=== PATIENT | male | born 1955 | race Caucasian/White ===

== ENCOUNTER 2016-12-17 18:23 | Inpatient (IN) ==
--- NOTE | 2016-12-17 18:41 | Emergency Department Note ---
Disposition Clinical Impression: Right sided weakness Disposition: Admitted As Inpatient Condition: Fair Referrals: NO,PCP [Non-Partnered Physician] - Forms: ED Satisfaction Letter Time of Disposition: 23:00 Weakness HPI - General Chief complaint: ED Chest Pain Stated complaint: CP, RIGHT SIDED WEAKNESS?? Time Seen by Provider: 12/17/16 18:27 Source: patient, EMS Mode of arrival: EMS Limitations: no limitations Nursing Notes Reviewed: Yes Vital Signs Reviewed: Yes - History of Present Illness HPI Narrative: Mr. Velasquez is a 60 year old male with history of trigeminal neuralgia post traumatic injury, PTSD, tobacco use, and alcoholic who presents via EMS for transfer from [facility] with complaint of right sided weakness since 13:00pm this afternoon and continuous double vision since 15:30pm. Patient was stumbling about two days ago when getting his mail and reported double vision at that time that resolved within about 15 minutes. Patient this evening also reports substernal dull achy chest pain off and on for about 1 week. Reports mild headache and nausea. Reports no alcohol or drugs. Has not had these similar symptoms in the past. Patient denies fevers, chills, sweats, trauma, vomiting, shortness of breath, abdominal pain, changes in urination. 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 Patient reports grandmother had an ME and mother had a stroke. Daughter reports that the patient's right side of his face was a little more droopy than normal with slurred speech and at the [facility] when they evaluated him they noted left lower extremity weakness. Pt Subjective Complaint: other (Right sided weakness) Onset (ago): hour(s) Duration: constant Pain Scale: 5 - Related Data Home Medications Medication Instructions Recorded Confirmed Alprazolam [Xanax 1 MG Tablet] 1 mg PO TID PRN 12/17/16 12/17/16 Baclofen [Lioresal] 5 mg PO BID 12/17/16 12/17/16 BuPROPion XL (24 HR) [Wellbutrin 450 mg PO DAILY 12/17/16 12/17/16 XL] CarBAMazepine [Tegretol] 200 mg PO TID 12/17/16 12/17/16 Gabapentin [Neurontin] 1,200 mg PO HS 12/17/16 12/17/16 Gabapentin [Neurontin] 600 mg PO BID 12/17/16 12/17/16 HydrOXYzine Pamoate [Vistaril] 50 mg PO BID PRN 12/17/16 12/17/16 Indomethacin [Indocin] 25 mg PO DAILY PRN 12/17/16 12/17/16 Nicotine Patch [Nicoderm] 21 mg TD DAILY 12/17/16 12/17/16 Potassium Gluconate [Potassium] 600 mg PO DAILY PRN 12/17/16 12/17/16 Prazosin HCl [Minipress] 2 mg PO HS 12/17/16 12/17/16 Quetiapine Fumarate [Seroquel] 200 mg PO HS 12/17/16 12/17/16 Allergies Allergy/AdvReac Type Severity Reaction Status Date / Time venom-honey bee Allergy Anaphylaxis Verified 01/30/16 09:14 [bee venom (honey bee)] duloxetine [From Cymbalta] AdvReac See Verified 12/17/16 19:42 Comments Constitutional: Reports: as per HPI, weakness. Denies: fever, chills, weight change Eyes: Reports: as per HPI, other (double vision) ENT ED: Reports: as per HPI Cardiovascular: Reports: as per HPI, chest pain. Denies: palpitations, edema, syncope Respiratory: Reports: as per HPI. Denies: cough, dyspnea, wheezes Gastrointestinal: Reports: as per HPI, nausea, constipation. Denies: abdominal pain, vomiting, diarrhea Genitourinary: Reports: as per HPI. Denies: dysuria Musculoskeletal: Reports: as per HPI, back pain. Denies: neck pain Integumentary: Reports: as per HPI Neurological: Reports: as per HPI, headache, weakness, numbness Psychiatric: Reports: as per HPI Endocrine: Reports: as per HPI Hematological/Lymphatic: Reports: as per HPI. Denies: easy bleeding, easy bruising Allergic/Immunologic: Reports: as per HPI Past Medical History - Past Medical History Medical history: Reports: hypertension Psychiatric history: Reports: anxiety, depression - Social History Smoking Status: Current every day smoker Smokeless Tobacco Status: No Alcohol use: Reports: heavy Last drink: days (ago) Drug use: Reports: none Mother Hx Family Neurologic Problems: Yes (stroke) Grandmother Hx Family Cardiac Disorders: Yes (Heart attack) Physical Exam - General Limitations: no limitations General appearance: alert, in no apparent distress - Head Head exam: atraumatic, normocephalic, normal inspection - Eye Eye exam: Present: normal appearance, PERRL, EOMI - ENT ENT exam: normal exam, normal oropharynx, mucous membranes moist - Neck Neck exam: Present: normal inspection, full ROM, trachea midline - Chest Chest inspection: Present: normal inspection, symmetric chest wall rise, other ( no reproducibilty of chest pain on palpation.) - Respiratory Respiratory exam: Present: normal lung sounds bilaterally - Cardiovascular Cardiovascular exam: Present: regular rate, normal rhythm, +S1, +S2 - Abdominal Exam Abdominal exam: Present: soft, Non-Tender, normal bowel sounds - Extremities Exam Extremities exam: Present: normal inspection, full ROM, other (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 Time: 19:03 Reevaluation #2: Patient evaluated by [facility]. Recommend CTA/MRI to rule out basilar infarct. Not a TPA candidate. No additional anticoagulant recommendations. Time: 19:15 - Consultations Consultation #1: Spoke with Dr. Chandler regarding admission for right sided weakness and chest pain. Admit Time: 22:54 Consultation #2: Spoke with Dr. Mora regarding patient to rule out basialr ischemic stroke. Admitted to hospitalist. Time: 22:59 Vital Signs Temperature 97.8 F 12/17/16 18:25 Pulse Rate 85 12/17/16 18:25 Respiratory Rate 18 12/17/16 18:25 Blood Pressure 198/114 12/17/16 18:25 O2 Sat by Pulse Oximetry 98 12/17/16 18:25 Temperature 97.8 F 12/17/16 18:25 Pulse Rate 84 12/17/16 21:50 Respiratory Rate 14 12/17/16 21:50 Blood Pressure 181/98 12/17/16 21:50 O2 Sat by Pulse Oximetry 96 12/17/16 21:50 Weakness - Lab Data Result diagrams: 12/17/16 18:50 12/17/16 18:50 Lab Results 12/17/16 12/17/16 12/17/16 Range/Units 18:50 18:50 18:50 WBC 6.2 (4.3-11.1) K/mcL RBC 4.68 (4.19-5.50) M/mcL Hgb 14.4 (12.9-16.9) g/dL Hct 41.9 (37.5-50.1) % MCV 89.5 (83.0-100.0) fL MCH 30.8 (28.0-33.3) pg MCHC 34.4 (31.6-35.5) g/dL RDW 12.3 (11.5-14.5) % Plt Count 241 (140-400) K/mcL MPV 7.8 L (9.4-12.4) fL Immature Gran % 0.3 (0-4) % Seg Neutrophils % 47.1 % Lymphocytes % 40.6 % Monocytes % 11.1 % Eosinophils % 0.6 % Basophils % 0.3 % Neutrophils # 2.9 (1.6-8.9) K/mcL Lymphocytes # 2.5 (0.6-4.6) K/mcL Monocytes # 0.7 (0.0-1.3) K/mcL Eosinophils # 0.0 (0.0-0.6) K/mcL Basophils # 0.0 (0.0-0.2) K/mcL PT 10.4 (9.4-12.1) Seconds INR 1.0 APTT 30.6 (26.0-36.0) Seconds Sodium 132 L (136-145) mEq/L Potassium 4.1 (3.5-4.5) mEq/L Chloride 100 (98-109) mEq/L Carbon Dioxide 22 (19-29) mEq/L BUN 14 (8-26) mg/dL Creatinine 1.12 (0.72-1.25) mg/dL Est GFR ( Amer) > 60 (> 60) Est GFR (Non-Af Amer) > 60 (> 60) BUN/Creatinine Ratio 13 (6-26) Glucose 93 (70-99) mg/dL Calculated Osmolality 274 L (280-300) Lactic Acid (0.5-2.2) mmol/L Calcium 8.3 L (8.6-10.8) mg/dL Total Bilirubin 0.3 (0.2-1.2) mg/dL AST 22 (5-34) Units/L ALT 16 (0-55) Units/L Alkaline Phosphatase 64 (38-126) Units/L Troponin I (0-0.03) ng/mL Serum Total Protein 5.9 L (6.0-8.3) g/dL Albumin 3.6 (3.5-5.0) g/dL Globulin 2.3 L (2.4-3.5) g/dL Albumin/Globulin Ratio 1.6 (1.1-2.2) Urine Color (Yellow) Urine Clarity (Clear) Urine pH (5.0-8.0) pH Units Ur Specific [place] (1.010-1.025) Urine Protein (Neg-Trace) mg/dL Urine Glucose (UA) (Normal) mg/dL Urine Ketones (Negative) mg/dL Urine Blood (Negative) Urine Nitrite (Negative) Urine Bilirubin (Negative) Urine Urobilinogen (Normal) mg/dL Ur Leukocyte Esterase (Negative) Ur Culture Indicated? (NO) Urine Opiates Screen (Rndxjs=778) ng/mL Ur Barbiturates Screen (Pjilom=472) ng/mL Ur Phencyclidine Scrn (Cutoff=25) ng/mL Ur Amphetamines Screen (Eyojbq=0885) ng/mL U Benzodiazepines Scrn (Gavqyu=328) ng/mL Urine Cocaine Screen (Cutoff= 300) ng/mL U Marijuana (THC) Screen (Cutoff = 50) ng/mL 12/17/16 12/17/16 12/17/16 Range/Units 18:50 18:50 21:00 WBC (4.3-11.1) K/mcL RBC (4.19-5.50) M/mcL Hgb (12.9-16.9) g/dL Hct (37.5-50.1) % MCV (83.0-100.0) fL MCH (28.0-33.3) pg MCHC (31.6-35.5) g/dL RDW (11.5-14.5) % Plt Count (140-400) K/mcL MPV (9.4-12.4) fL Immature Gran % (0-4) % Seg Neutrophils % % Lymphocytes % % Monocytes % % Eosinophils % % Basophils % % Neutrophils # (1.6-8.9) K/mcL Lymphocytes # (0.6-4.6) K/mcL Monocytes # (0.0-1.3) K/mcL Eosinophils # (0.0-0.6) K/mcL Basophils # (0.0-0.2) K/mcL PT (9.4-12.1) Seconds INR APTT (26.0-36.0) Seconds Sodium (136-145) mEq/L Potassium (3.5-4.5) mEq/L Chloride (98-109) mEq/L Carbon Dioxide (19-29) mEq/L BUN (8-26) mg/dL Creatinine (0.72-1.25) mg/dL Est GFR ( Amer) (> 60) Est GFR (Non-Af Amer) (> 60) BUN/Creatinine Ratio (6-26) Glucose (70-99) mg/dL Calculated Osmolality (280-300) Lactic Acid 1.0 (0.5-2.2) mmol/L Calcium (8.6-10.8) mg/dL Total Bilirubin (0.2-1.2) mg/dL AST (5-34) Units/L ALT (0-55) Units/L Alkaline Phosphatase (38-126) Units/L Troponin I 0.00 (0-0.03) ng/mL Serum Total Protein (6.0-8.3) g/dL Albumin (3.5-5.0) g/dL Globulin (2.4-3.5) g/dL Albumin/Globulin Ratio (1.1-2.2) Urine Color Yellow (Yellow) Urine Clarity Clear (Clear) Urine pH 6.5 (5.0-8.0) pH Units Ur Specific [place] 1.011 (1.010-1.025) Urine Protein Negative (Neg-Trace) mg/dL Urine Glucose (UA) Normal (Normal) mg/dL Urine Ketones Negative (Negative) mg/dL Urine Blood Negative (Negative) Urine Nitrite Negative (Negative) Urine Bilirubin Negative (Negative) Urine Urobilinogen Normal (Normal) mg/dL Ur Leukocyte Esterase Negative (Negative) Ur Culture Indicated? NO (NO) Urine Opiates Screen (Nvukfk=935) ng/mL Ur Barbiturates Screen (Xzfifi=205) ng/mL Ur Phencyclidine Scrn (Cutoff=25) ng/mL Ur Amphetamines Screen (Hjngnb=3813) ng/mL U Benzodiazepines Scrn (Pncgxh=188) ng/mL Urine Cocaine Screen (Cutoff= 300) ng/mL U Marijuana (THC) Screen (Cutoff = 50) ng/mL 12/17/16 Range/Units 21:00 WBC (4.3-11.1) K/mcL RBC (4.19-5.50) M/mcL Hgb (12.9-16.9) g/dL Hct (37.5-50.1) % MCV (83.0-100.0) fL MCH (28.0-33.3) pg MCHC (31.6-35.5) g/dL RDW (11.5-14.5) % Plt Count (140-400) K/mcL MPV (9.4-12.4) fL Immature Gran % (0-4) % Seg Neutrophils % % Lymphocytes % % Monocytes % % Eosinophils % % Basophils % % Neutrophils # (1.6-8.9) K/mcL Lymphocytes # (0.6-4.6) K/mcL Monocytes # (0.0-1.3) K/mcL Eosinophils # (0.0-0.6) K/mcL Basophils # (0.0-0.2) K/mcL PT (9.4-12.1) Seconds INR APTT (26.0-36.0) Seconds Sodium (136-145) mEq/L Potassium (3.5-4.5) mEq/L Chloride (98-109) mEq/L Carbon Dioxide (19-29) mEq/L BUN (8-26) mg/dL Creatinine (0.72-1.25) mg/dL Est GFR ( Amer) (> 60) Est GFR (Non-Af Amer) (> 60) BUN/Creatinine Ratio (6-26) Glucose (70-99) mg/dL Calculated Osmolality (280-300) Lactic Acid (0.5-2.2) mmol/L Calcium (8.6-10.8) mg/dL Total Bilirubin (0.2-1.2) mg/dL AST (5-34) Units/L ALT (0-55) Units/L Alkaline Phosphatase (38-126) Units/L Troponin I (0-0.03) ng/mL Serum Total Protein (6.0-8.3) g/dL Albumin (3.5-5.0) g/dL Globulin (2.4-3.5) g/dL Albumin/Globulin Ratio (1.1-2.2) Urine Color (Yellow) Urine Clarity (Clear) Urine pH (5.0-8.0) pH Units Ur Specific [place] (1.010-1.025) Urine Protein (Neg-Trace) mg/dL Urine Glucose (UA) (Normal) mg/dL Urine Ketones (Negative) mg/dL Urine Blood (Negative) Urine Nitrite (Negative) Urine Bilirubin (Negative) Urine Urobilinogen (Normal) mg/dL Ur Leukocyte Esterase (Negative) Ur Culture Indicated? (NO) Urine Opiates Screen Negative (Keamnx=131) ng/mL Ur Barbiturates Screen Negative (Kqqjxa=172) ng/mL Ur Phencyclidine Scrn Negative (Cutoff=25) ng/mL Ur Amphetamines Screen Negative (Xeeysi=4193) ng/mL U Benzodiazepines Scrn Positive H (Lskzxr=359) ng/mL Urine Cocaine Screen Negative (Cutoff= 300) ng/mL U Marijuana (THC) Screen Negative (Cutoff = 50) ng/mL - Radiology Data No acute intracranial abnormalities. Diffuse atrophic changes suggestive of chronic microvascular ischemia. - EKG Data EKG results narrative: normal sinus rhythm, hr 83, pr 144ms, qrs 102 ms, QTc 365/405 EKG shows normal: sinus rhythm Rate: normal Rhythm: NSR Critical Care Time Total Critical Care Time: 30 Attestation: Critical care performed: Time is exclusive of separately billable procedures. Time includes: direct patient care, patient reassessment, coordination of patient care, interpretation of data (laboratory data, radiology data, and respiratory data), review of patient's medical records, medical consultation and documentation of patient care. Procedures included in critical care time: Procedures excluded from critical care time: Attestation Statement - Attestation Attestation: I examined this patient and my medical decision-making was reviewed with the NETWORK TECHNICIAN/PA/Advanced Practice Nurse/Resident Physician. I agree with the documented findings, disposition and treatment plan as described except to the extent set forth below. Patient has a complaint of difficulty with ambulation and right-sided. Patient was seen at the [facility] and per report last known well was 4:30. Patient denies shortness of breath but he said chest pain is been intermittent for the past week. Patient denies fevers and chills. Patient states he has had blurred vision that started earlier today. States he feels spinning and feels that he is weak. Patient was discussed with [facility] stroke neurologist who feels that patient was not a candidate for TPA patient will be admitted to this facility for workup.
[2016-12-17 19:43] LABS: Activated Partial Thrombo Time 30.6 Seconds (26.0-36.0); Prothrombin Time 10.4 Seconds (9.4-12.1)
[2016-12-17 19:45] LABS: Basophils % 0.3 %; Eosinophils % 0.6 %; Hematocrit 41.9 % (37.5-50.1); Hemoglobin 14.4 g/dL (12.9-16.9); Immature Granulocytes % 0.3 % (0-4); Lymphocytes # 2.5 K/mcL (0.6-4.6); Lymphocytes % 40.6 %; Mean Corpuscular HGB Conc 34.4 g/dL (31.6-35.5); Mean Corpuscular Hemoglobin 30.8 pg (28.0-33.3); Mean Corpuscular Volume 89.5 fL (83.0-100.0); Mean Platelet Volume 7.8 fL (9.4-12.4); Monocytes # 0.7 K/mcL (0.0-1.3); Monocytes % 11.1 %; Neutrophils # 2.9 K/mcL (1.6-8.9); Platelet Count 241 K/mcL (140-400); Red Blood Count 4.68 M/mcL (4.19-5.50); Red Cell Distribution Width 12.3 % (11.5-14.5); Segmented Neutrophils % 47.1 %
[2016-12-17 19:55] LABS: Alanine Aminotransferase 16 Units/L (0-55); Albumin 3.6 g/dL (3.5-5.0); Albumin/Globulin Ratio 1.6 (1.1-2.2); Alkaline Phosphatase 64 Units/L (38-126); Aspartate Amino Transferase 22 Units/L (5-34); BUN/Creatinine Ratio 13 (6-26); Bilirubin,Total 0.3 mg/dL (0.2-1.2); Blood Urea Nitrogen 14 mg/dL (8-26); Calcium 8.3 mg/dL (8.6-10.8); Carbon Dioxide 22 mEq/L (19-29); Chloride 100 mEq/L (98-109); Globulin 2.3 g/dL (2.4-3.5); Glucose 93 mg/dL (70-99); Osmolality,Calculated 274 (280-300); Potassium 4.1 mEq/L (3.5-4.5); Sodium 132 mEq/L (136-145); Total Protein 5.9 g/dL (6.0-8.3); eGFR For African Americans > 60 (> 60); eGFR For Non-African Americans > 60 (> 60)
[2016-12-17 21:12] LABS: Bilirubin,Urine Negative (Negative); Blood,Urine Negative (Negative); Clarity,Urine Clear (Clear); Color,Urine Yellow (Yellow); Glucose,Urine (UA) Normal (Normal); Ketones,Urine Negative (Negative); Leukocyte Esterase,Urine Negative (Negative); Nitrite,Urine Negative (Negative); PH,Urine 6.5 pH Units (5.0-8.0); Protein,Urine Negative (Neg-Trace); Specific Gravity,Urine 1.011 (1.010-1.025); Urobilinogen,Urine Normal (Normal)
[2016-12-17 21:22] LABS: Amphetamine Screen,Urine Negative ng/mL (Cutoff=1000); Barbiturate Screen,Urine Negative ng/mL (Cutoff=200); Benzodiazepines Screen,Urine Positive ng/mL (Cutoff=200); Cannabinoid Screen,Urine Negative ng/mL (Cutoff = 50); Cocaine Screen,Urine Negative ng/mL (Cutoff= 300); Opiate Screen,Urine Negative ng/mL (Cutoff=300); Phencyclidine Screen,Urine Negative ng/mL (Cutoff=25)
[2016-12-17] MEDS ORDERED: Aspirin 325 MG TABLET PO ONE (22:47)
[2016-12-18] MEDS ORDERED: Naloxone 0.4 MG/ML INJ IVP PRN (02:04)
[2016-12-18] MEDS ORDERED: *HR* Morphine 2 MG/ML SYRINGE IVP PRN (02:04)
[2016-12-18] MEDS ORDERED: Ondansetron 4 MG/2 ML VIAL IVP PRN (02:04)
[2016-12-18] MEDS ORDERED: *HR* OxyCODONE Immed Rel 5 MG TABLET PO PRN (02:04)
[2016-12-18] MEDS ORDERED: Acetaminophen 325 MG TABLET PO PRN (02:04)
[2016-12-18] MEDS ORDERED: 0.9 % Sodium Chloride 1,000 ML IVC SCH (02:15)
[2016-12-18 05:36] LABS: Basophils % 0.4 %; Eosinophils # 0.1 K/mcL (0.0-0.6); Eosinophils % 0.9 %; Hematocrit 40.8 % (37.5-50.1); Hemoglobin 13.6 g/dL (12.9-16.9); Immature Granulocytes % 0.5 % (0-4); Lymphocytes # 2.5 K/mcL (0.6-4.6); Lymphocytes % 44.4 %; Mean Corpuscular HGB Conc 33.3 g/dL (31.6-35.5); Mean Corpuscular Hemoglobin 29.8 pg (28.0-33.3); Mean Corpuscular Volume 89.5 fL (83.0-100.0); Mean Platelet Volume 7.8 fL (9.4-12.4); Monocytes # 0.6 K/mcL (0.0-1.3); Neutrophils # 2.4 K/mcL (1.6-8.9); Platelet Count 235 K/mcL (140-400); Red Blood Count 4.56 M/mcL (4.19-5.50); Red Cell Distribution Width 12.3 % (11.5-14.5); Segmented Neutrophils % 43.8 %
[2016-12-18 05:43] LABS: BUN/Creatinine Ratio 9 (6-26); Blood Urea Nitrogen 9 mg/dL (8-26); Calcium 8.5 mg/dL (8.6-10.8); Carbon Dioxide 25 mEq/L (19-29); Chloride 101 mEq/L (98-109); Chol/HDL Ratio 2.1 (0-4.9); Cholesterol 111 mg/dL (< 200); Glucose 95 mg/dL (70-99); HDL Cholesterol 54 mg/dL (40-59); LDL Cholesterol,Calculated 34 mg/dL (0-99); Magnesium 1.9 mg/dL (1.6-2.6); Osmolality,Calculated 274 (280-300); Phosphorous 3.2 mg/dL (2.3-4.7); Potassium 3.6 mEq/L (3.5-4.5); Sodium 133 mEq/L (136-145); Triglycerides 114 mg/dL (< 150); eGFR For African Americans > 60 (> 60); eGFR For Non-African Americans > 60 (> 60)
--- NOTE | 2016-12-18 07:24 | Internal Med History&Physical ---
Date of Encounter: 12/24/16 Time of Encounter: 02:00 Assessment and Plan (1) TIA (transient ischemic attack) Status: Acute . Qualifiers: Transient cerebral ischemia type: unspecified Qualified Code(s): G45.9 - Transient cerebral ischemic attack, unspecified (2) Trigeminal neuralgia of right side of face Status: Chronic . (3) Right sided weakness Status: Acute . (4) Tobacco abuse Status: Chronic . (5) Accelerated hypertension Status: Acute . Internal Medicine - H&P: HPI Chief complaint: Right sided weakness Admitted From: Emergency Dept Plans for Post Hospital Care: Home History of present illness: Mr. 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 The patient is admitted to [facility] via ED as a hospital transfer from [facility] urgent [place] patient presented with complaints of chest pain. He reported intermittent tightness in the middle of his chest lasting a minute to 2 minutes at a time. These episodes were associated with intermittent dizziness and blurring of vision as well as a sense of unsteadiness and staggering gait. Symptoms began two days prior to his presentation to urgent care center. He felt fine the day before his presentation. However at approximately 3 PM the day of his presentation to urgent care center he once again had acute onset of dizziness and blurring of vision and staggering unsteady gait. Upon his arrival at the [facility] he denied any acute chest pain. He did admit to some shortness of breath. He denied any focal numbness or weakness and slurring of speech. The patient reported to his history of chronic right facial palsy of approximately 2 years duration posttraumatic trigeminal nerve injury. This was clarified as the patient had never experienced a stroke or strokelike symptoms. However his daughter seemed to feel that his right facial weakness seemed more prominent during these episodes. He did not demonstrate evidence for acute mental status, aphasia, dysarthria. He did seem to demonstrate some bilateral but right-sided weakness greater than left beginning at approximately 1 PM the afternoon of presentation and continuous television beginning at about 3:30 p.m. Experience a mild headache with some nausea. Denied any alcohol or drugs on the day of presentation but acknowledged drinking luisitoe toncitlalli before he denies any similar events like this in his past.. His pain when present was rated at 5/10 severity with no modifying factors. . Findings in the [facility]: Temperature 97.3 pulse 87. BP 187/99 respirations 14 oxygen saturation 98% room air. WBC 6.8 hemoglobin 14.7 platelets. 121,000. Differential showed an increase in monocytes. Metabolic panel normal. BUN 14 creatinine 1.06. Albumin 3.3 total 6.5. Lipid panel showed a triglyceride of 500 cholesterol 169 HDL 73 LDL 51. Troponin 0.00. EKG demonstrated sinus rhythm at a rate of 86 bpm no acute ischemic changes. Findings in the ED: Temperature 97.8 pulse 85 respirations 14-18 BP 181-198/98-114. O2 saturation 98 % room air. PT 10.4 INR 1 PTT 30.6. Metabolic panel shows sodium of 132 osmolality of 274. BUN 14 creatinine 1.12. Calcium 8.3. Albumin 3.6 with total of 5.9. Hepatic function normal. Lactic acid 1. Troponin 0.00. Urinalysis negative. Urine drug screen positive for benzodiazepine. EKG normal sinus rhythm. Rate 83. No acute ischemic changes. The patient was evaluated for possible TPA and felt to be not a candidate given the history of his symptoms and clinical findings. Preliminary impression suggest acute transient ischemic accident in the setting of accelerated hypertension/hypertensive urgency. Region presents with moderate hypertriglyceridemia and hyponatremia hypo osmolality. The patient presents risk for acute clinical decline and morbidity given his presenting chief complaint, clinical findings and comorbidities. Workup and treatment will proceed comprehensively. Cumulative laboratory and radiographic data base was reviewed, considered and discussed. Pertinent ancillary medical records including ECW and PCI documentation was reviewed and considered. Given the patient's presenting concerns, past medical history, clinical findings and symptoms, he is admitted at this time will undergo further evaluation and disposition. Orders were written as per the computerized physician supervisor border department system.......................................................................... .................... Consultative opinions will be sought as clinical circumstances justify. Initial consultative opinion has been requested of neurology. Pain management needs will be addressed. Laboratory and radiographic data base will be updated as appropriate. Studies include: PT/INR,APTT,Ddimer, prolactin, CPK, LDH, cardiac injury panel, BNP, metabolic and hematologic panel, magnesium, phosphorus, ionized calcium, thyroid panel, lipid profile, A1c, C-peptide, CRP, sed rate, respiratory infection profile, respiratory virus panel, blood gas, lactic acid, UA, UDS, serologies, etc. Precautions: Aspiration, fall, seizure, delirium protocol/surveillance initiated. Telemetry with continuous hemodynamic monitoring and pulse oximetry initiated. Orthostatic vital signs. Empiric antibiotic coverage: pending diagnostic/culture data. Special studies: CT head,MRI brain, MRA head and neck, chest x-ray, telemetry, EKG. echocardiogram. Pulmonary toilet: Incentive spirometry. Aerosol bronchodilator, mucolytic, antitussivePRN. Supplemental oxygen. Corticosteroid therapyPRN. CPAP/BiPAP supplemental oxygen deliveryPRN. Aerosol Mucomyst therapyPRN. Fluid and electrolyte repletion efforts will proceed. Careful attention to fluid balance and renal recovery will be emphasized. Avoidance of nephrotoxic exposure and adverse drug drug interaction in the setting of impaired renal function will be monitored closely. Acute coronary syndrome protocol/surveillance initiated. Acute [employer] injury protocol/surveillance initiated. Aspirin plus statin. Permissive hypertension. Intravenous hydralazine therapy titration for systolic pressures greater than 180 pending completion of the evaluation for TIA CVA vascular anomaly. Empiric acute alcohol withdrawal/detoxification protocol/surveillance initiated. CIWA/SAS guidelines. Thiamine,folate, B12 , MVI+iron+minerals supplements. DVT and PUD prophylaxis initiated: PPI therapy, intermittent pneumatic cuffs. Subcutaneous heparin. Early ambulation will be encouraged. Immunization updates recommended. Influenza and pneumococcal vaccinations as part of ongoing preventative healthcare recommendations strongly recommended. Smoking cessation counseling briefly addressed. Patient accepts nicotine substitution during this admission.. Advanced care directive discussion briefly addressed. Patient does not declare any healthcare restrictions at this time. Cardiovascular risk appraisal and cardiovascular risk reduction efforts will be emphasized. Physical /occupational therapy may be consulted to evaluate/assess patient's functional capacity and progress mobility as circumstances justify. Nutrition/dietary education counseling may be considered as circumstances justify. Outpatient medication schedules will be reviewed, confirmed and facilitated as appropriate. Reconciliation of home treatments including adjustments, substitutions and reintroduction into the treatment regimen will address necessary maintenance therapies for chronic pre-existing medical conditions. Plan of care has been reviewed and discussed in detail with the patient. Questions addressed. Hospital course dictated by clinical findings, treatment response and potential consultative interventions. Patient is at risk for further acute clinical decline and morbidity due to presenting chief complaints, findings and comorbid conditions. Condition is serious. Prognosis is cautiously optimistic. CODE STATUS is full. Past Med Surg Social Fam HX - Past Medical History Source: old records reviewed Medical history: arthritis, hypertension, other (Trigeminal neuralgia involving the right face) Psychiatric history: anxiety, depression, PTSD, other - Past Surgical History Surgical History: non-contributory, other - Social History Smoking Status: Current every day smoker Packs per day: 0.5 Smokeless Tobacco Status: No Alcohol use: occasionally Drug use: none Occupational status: unemployed, disabled Current living situation: With Family Activity Level: Independent ambulation, Mostly sedentary Recent Out of Country Travel Within the Last 8 Weeks: No Exposure or Possible Exposure to Illness During Travel: No - Family History Mother Hx Family Neurologic Disorders: Yes (CVA.) Grandmother Hx Family Cardiac Disorders: Yes (Heart attack) Internal Medicine - H&P: Meds Alprazolam [Xanax 1 MG Tablet] 1 mg PO TID PRN 12/17/16 [History] Baclofen [Lioresal] 5 mg PO BID 12/17/16 [History] BuPROPion XL (24 HR) [Wellbutrin Xl] 450 mg PO DAILY 12/17/16 [History] CarBAMazepine [Tegretol] 200 mg PO TID 12/17/16 [History] Gabapentin [Neurontin] 1,200 mg PO HS 12/17/16 [History] Gabapentin [Neurontin] 600 mg PO BID 12/17/16 [History] HydrOXYzine Pamoate [Vistaril] 50 mg PO BID PRN 12/17/16 [History] Indomethacin [Indocin] 25 mg PO DAILY PRN 12/17/16 [History] Nicotine Patch [Nicoderm] 21 mg TD DAILY 12/17/16 [History] Potassium Gluconate [Potassium] 600 mg PO DAILY PRN 12/17/16 [History] Prazosin HCl [Minipress] 2 mg PO HS 12/17/16 [History] Quetiapine Fumarate [Seroquel] 200 mg PO HS 12/17/16 [History] CarBAMazepine [Tegretol Xr] 200 mg PO BID 12/18/16 [History] Amlodipine [Norvasc] 5 mg PO DAILY #30 tablet 12/19/16 [Rx] Aspirin 81 mg PO DAILY #30 tab.chew 12/19/16 [Rx] Atorvastatin [Lipitor] 40 mg PO HS #30 tablet 12/19/16 [Rx] Blood Pressure Kit Med,Large [Blood Pressure Monitor] 1 each MC DAILY #1 kit [Rx] Clopidogrel [Plavix] 75 mg PO DAILY #30 tablet 12/19/16 [Rx] Allergies venom-honey bee [bee venom (honey bee)] Allergy (Verified 01/30/16 09:14) Anaphylaxis duloxetine [From Cymbalta] Adverse Reaction (Verified 12/17/16 19:42) See Comments [facility] medication list All Systems PM: A 10-system review of systems was performed and is negative for pertinent findings except as documented above in the HPI. - Constitutional Constitutional: as per HPI, no chills, no fever(s), no night sweats - EENT Eyes: as per HPI, blurry vision, diplopia, no change in vision, no discharge, no pain, no photophobia Ears: as per HPI, no ear discharge, no ear pain, no tinnitus Nose, mouth and throat: as per HPI, no dysphagia, no nasal discharge, no neck pain, no sore throat - Cardiovascular Cardiovascular ROS IM: as per HPI, no chest pain, no diaphoresis, no dyspnea, no lightheadedness, no palpitations, no syncope - Respiratory Respiratory: as per HPI, no cough, no dyspnea, no wheezing, no excessive phlegm production - Gastrointestinal Gastrointestinal: as per HPI, no abdominal pain, no diarrhea, no hematemesis, no hematochezia, no melena, no nausea, no vomiting - Genitourinary Genitourinary ROS male: as per HPI - Musculoskeletal Musculoskeletal ROS IM: as per HPI, no numbness, no tingling - Integumentary Integumentary IM: as per HPI - Neurological Neurological ROS: as per HPI, abnormal speech, confusion, focal weakness, other , no convulsions, no numbness, no tingling, no tremor(s) - Psychiatric Psychiatric: as per HPI - Endocrine Endocrine IM: as per HPI - Hematologic/Lymphatic Hematologic/Lymphatic: as per HPI, no easy bruising - Allergic/Immunologic Allergic/Immunologic: as per HPI - Constitutional Vitals: Temp Pulse Resp BP Pulse Ox 97.6 F 71 16 120/74 97 12/18/16 03:56 12/18/16 03:56 12/18/16 03:56 12/18/16 03:56 12/18/16 03:56 General appearance: Present: cooperative, A&O X 3, no acute distress, answers questions appropriately - Head Head exam: Present: atraumatic, normocephalic - Eye Eye exam: Present: EOMI, PERRL, conjuntiva pink, sclera anicteric Pupils: Present: normal accommodation, PERRL - ENT ENT exam: Present: mucous membranes moist, normal external ear exam, normal oropharynx - Neck Neck exam general surgery: Present: full ROM, supple, trachea midline. Absent: lymphadenopathy, tenderness, nuchal rigidity - Expanded Neck Exam Neck exam: Absent: anterior neck swelling, carotid bruit, midline deformity, tenderness, thyroid mass, tracheal deviation - Respiratory Respiratory exam: Present: decreased breath sounds, CTAB. Absent: accessory muscle use, rales, rhonchi, wheezes - Cardiovascular Cardiovascular exam: Present: distant heart sounds, RRR, +S1, +S2. Absent: diastolic murmur, gallop, rubs, systolic murmur - GI/Abdominal GI/Abdominal exam: Present: normal bowel sounds, soft, no peritoneal signs. Absent: distended, tenderness - Extremities Exam Extremities exam: Present: full ROM, warm, radial pulses palpable and symetrical. Absent: calf tenderness, cyanotic, pedal edema - Neurological Exam Neurological exam: Present: alert, CN II-XII intact, oriented X3, no focal deficits. Absent: pronater drift, facial droop, speech deficit - Expanded Neurological Exam Neurological exam expanded: Present: protecting the airway. Absent: ataxia, expressive aphasia, receptive aphasia, tremor Patient oriented to: Present: person, place, time Speech: Present: fluid speech Coma Scale Eye Opening: Spontaneous Coma Scale Motor Response: Obeys Commands Coma Scale Verbal Response: Oriented Coma Scale Total: 15 - Psychiatric Psychiatric exam: Present: normal affect, normal mood - Skin Skin exam: Present: dry, intact, warm. Absent: petechiae, rash, urticaria, vesicles Internal Med - H&P Results - Labs CBC & Chem 7: 12/18/16 04:06 12/18/16 04:06 Labs: Short CBC 12/18/16 Range/Units 04:06 WBC 5.6 (4.3-11.1) K/mcL Hgb 13.6 (12.9-16.9) g/dL Hct 40.8 (37.5-50.1) % Plt Count 235 (140-400) K/mcL Neutrophils # 2.4 (1.6-8.9) K/mcL BMP 12/18/16 04:06 Sodium 133 L Potassium 3.6 Chloride 101 Carbon Dioxide 25 BUN 9 Creatinine 0.97 Glucose 95 Calcium 8.5 L Cardiac Enzymes 12/18/16 Range/Units 04:06 Troponin I 0.00 (0-0.03) ng/mL - Impressions Vital Signs Temp Pulse Resp BP Pulse Ox 12/18/16 03:56 97.6 F 71 16 120/74 97 12/18/16 01:23 65 184/91 12/17/16 23:56 98.2 F 74 16 185/93 98 12/17/16 23:23 16 174/90 12/17/16 21:50 84 14 181/98 96 12/17/16 19:04 85 18 199/106 12/17/16 18:52 89 18 199/106 95 12/17/16 18:25 97.8 F 85 18 198/114 98 Intake and Output 12/17/16 12/17/16 12/18/16 15:59 23:59 07:59 Other: Weight 73.936 kg 75.614 kg Blood Glucose* 92 Patient Weight 12/18/16 23:59 Weight 75.614 kg Short CBC 12/18/16 12/17/16 Range/Units 04:06 18:50 WBC 5.6 6.2 (4.3-11.1) K/mcL Hgb 13.6 14.4 (12.9-16.9) g/dL Hct 40.8 41.9 (37.5-50.1) % Plt Count 235 241 (140-400) K/mcL Neutrophils # 2.4 2.9 (1.6-8.9) K/mcL BMP 12/18/16 12/17/16 Range/Units 04:06 18:50 Sodium 133 L 132 L (136-145) mEq/L Potassium 3.6 4.1 (3.5-4.5) mEq/L Chloride 101 100 (98-109) mEq/L Carbon Dioxide 25 22 (19-29) mEq/L BUN 9 14 (8-26) mg/dL Creatinine 0.97 1.12 (0.72-1.25) mg/dL Glucose 95 93 (70-99) mg/dL Calcium 8.5 L 8.3 L (8.6-10.8) mg/dL Cardiac Enzymes 12/18/16 12/17/16 Range/Units 04:06 18:50 Troponin I 0.00 0.00 (0-0.03) ng/mL Liver Function 12/17/16 Range/Units 18:50 Total Bilirubin 0.3 (0.2-1.2) mg/dL AST 22 (5-34) Units/L ALT 16 (0-55) Units/L Alkaline Phosphatase 64 (38-126) Units/L Albumin 3.6 (3.5-5.0) g/dL Urine 12/17/16 Range/Units 21:00 Urine Color Yellow (Yellow) Urine Clarity Clear (Clear) Urine pH 6.5 (5.0-8.0) pH Units Ur Specific [place] 1.011 (1.010-1.025) Urine Protein Negative (Neg-Trace) mg/dL Urine Glucose (UA) Normal (Normal) mg/dL Abnormal lab results MPV 7.8 fL (9.4-12.4) L 12/18/16 04:06 Sodium 133 mEq/L (136-145) L 12/18/16 04:06 Calculated Osmolality 274 (280-300) L 12/18/16 04:06 Calcium 8.5 mg/dL (8.6-10.8) L 12/18/16 04:06 Serum Total Protein 5.9 g/dL (6.0-8.3) L 12/17/16 18:50 Globulin 2.3 g/dL (2.4-3.5) L 12/17/16 18:50 U Benzodiazepines Scrn Positive ng/mL (Zgxeka=483) H 12/17/16 21:00 Allergies Allergy/AdvReac Type Severity Reaction Status Date / Time venom-honey bee Allergy Anaphylaxis Verified 01/30/16 09:14 [bee venom (honey bee)] duloxetine [From Cymbalta] AdvReac See Verified 12/17/16 19:42 Comments Laboratory Results WBC 5.6 K/mcL (4.3-11.1) 12/18/16 04:06 RBC 4.56 M/mcL (4.19-5.50) 12/18/16 04:06 Hgb 13.6 g/dL (12.9-16.9) 12/18/16 04:06 Hct 40.8 % (37.5-50.1) 12/18/16 04:06 MCV 89.5 fL (83.0-100.0) 12/18/16 04:06 MCH 29.8 pg (28.0-33.3) 12/18/16 04:06 MCHC 33.3 g/dL (31.6-35.5) 12/18/16 04:06 RDW 12.3 % (11.5-14.5) 12/18/16 04:06 Plt Count 235 K/mcL (140-400) 12/18/16 04:06 MPV 7.8 fL (9.4-12.4) L 12/18/16 04:06 Immature Gran % 0.5 % (0-4) 12/18/16 04:06 Seg Neutrophils % 43.8 % 12/18/16 04:06 Lymphocytes % 44.4 % 12/18/16 04:06 Monocytes % 10.0 % 12/18/16 04:06 Eosinophils % 0.9 % 12/18/16 04:06 Basophils % 0.4 % 12/18/16 04:06 Neutrophils # 2.4 K/mcL (1.6-8.9) 12/18/16 04:06 Lymphocytes # 2.5 K/mcL (0.6-4.6) 12/18/16 04:06 Monocytes # 0.6 K/mcL (0.0-1.3) 12/18/16 04:06 Eosinophils # 0.1 K/mcL (0.0-0.6) 12/18/16 04:06 Basophils # 0.0 K/mcL (0.0-0.2) 12/18/16 04:06 PT 10.4 Seconds (9.4-12.1) 12/17/16 18:50 INR 1.0 12/17/16 18:50 APTT 30.6 Seconds (26.0-36.0) 12/17/16 18:50 Sodium 133 mEq/L (136-145) L 12/18/16 04:06 Potassium 3.6 mEq/L (3.5-4.5) 12/18/16 04:06 Chloride 101 mEq/L (98-109) 12/18/16 04:06 Carbon Dioxide 25 mEq/L (19-29) 12/18/16 04:06 BUN 9 mg/dL (8-26) 12/18/16 04:06 Creatinine 0.97 mg/dL (0.72-1.25) 12/18/16 04:06 Est GFR ( Amer) > 60 (> 60) 12/18/16 04:06 Est GFR (Non-Af Amer) > 60 (> 60) 12/18/16 04:06 BUN/Creatinine Ratio 9 (6-26) 12/18/16 04:06 Glucose 95 mg/dL (70-99) 12/18/16 04:06 Calculated Osmolality 274 (280-300) L 12/18/16 04:06 Lactic Acid 1.0 mmol/L (0.5-2.2) 12/17/16 18:50 Calcium 8.5 mg/dL (8.6-10.8) L 12/18/16 04:06 Phosphorus 3.2 mg/dL (2.3-4.7) 12/18/16 04:06 Magnesium 1.9 mg/dL (1.6-2.6) 12/18/16 04:06 Total Bilirubin 0.3 mg/dL (0.2-1.2) 12/17/16 18:50 AST 22 Units/L (5-34) 12/17/16 18:50 ALT 16 Units/L (0-55) 12/17/16 18:50 Alkaline Phosphatase 64 Units/L (38-126) 12/17/16 18:50 Troponin I 0.00 ng/mL (0-0.03) 12/18/16 04:06 Serum Total Protein 5.9 g/dL (6.0-8.3) L 12/17/16 18:50 Albumin 3.6 g/dL (3.5-5.0) 12/17/16 18:50 Globulin 2.3 g/dL (2.4-3.5) L 12/17/16 18:50 Albumin/Globulin Ratio 1.6 (1.1-2.2) 12/17/16 18:50 Triglycerides 114 mg/dL (< 150) 12/18/16 04:06 Cholesterol 111 mg/dL (< 200) 12/18/16 04:06 LDL Cholesterol, Calc 34 mg/dL (0-99) 12/18/16 04:06 VLDL Cholesterol, Calc 23 mg/dL (< 31) 12/18/16 04:06 HDL Cholesterol 54 mg/dL (40-59) 12/18/16 04:06 Cholesterol/HDL Ratio 2.1 (0-4.9) 12/18/16 04:06 Urine Color Yellow (Yellow) 12/17/16 21:00 Urine Clarity Clear (Clear) 12/17/16 21:00 Urine pH 6.5 pH Units (5.0-8.0) 12/17/16 21:00 Ur Specific [place] 1.011 (1.010-1.025) 12/17/16 21:00 Urine Protein Negative mg/dL (Neg-Trace) 12/17/16 21:00 Urine Glucose (UA) Normal mg/dL (Normal) 12/17/16 21:00 Urine Ketones Negative mg/dL (Negative) 12/17/16 21:00 Urine Blood Negative (Negative) 12/17/16 21:00 Urine Nitrite Negative (Negative) 12/17/16 21:00 Urine Bilirubin Negative (Negative) 12/17/16 21:00 Urine Urobilinogen Normal mg/dL (Normal) 12/17/16 21:00 Ur Leukocyte Esterase Negative (Negative) 12/17/16 21:00 Ur Culture Indicated? NO (NO) 12/17/16 21:00 Urine Opiates Screen Negative ng/mL (Oycvov=947) 12/17/16 21:00 Ur Barbiturates Screen Negative ng/mL (Okntwt=032) 12/17/16 21:00 Ur Phencyclidine Scrn Negative ng/mL (Cutoff=25) 12/17/16 21:00 Ur Amphetamines Screen Negative ng/mL (Gguhzj=7596) 12/17/16 21:00 U Benzodiazepines Scrn Positive ng/mL (Pdpkyr=381) H 12/17/16 21:00 Urine Cocaine Screen Negative ng/mL (Cutoff= 300) 12/17/16 21:00 U Marijuana (THC) Screen Negative ng/mL (Cutoff = 50) 12/17/16 21:[address] 12/17/16 18:37 IMPRESSION: No acute intracranial abnormality. Diffuse atrophic changes with findings suggesting chronic microvascular ischemia Findings were discussed with Patrice Rubin at 7:01 pm on 12/17/2016. D/ / Antoine Spaulding MD / Antoine Spaulding MD Interpreting Provider: Antoine Spaulding MD Chest X-Ray 12/17/16 19:38 IMPRESSION: No acute cardiopulmonary abnormality. D/ / Kody Mason MD / Kody Mason MD Interpreting Provider: Kody Mason MD
[2016-12-18] MEDS: *HR* Enoxaparin 40 MG/0.4 ML SYRINGE SQ SCH (07:37)
[2016-12-18] MEDS: Aspirin 81 MG TAB.CHEW PO SCH (12:28)
[2016-12-18] MEDS: CarBAMazepine XR (12 hr) 100 MG TAB PO SCH ×2 (12:29→22:40)
[2016-12-18] MEDS: carBAMazepine 200 MG TABLET PO SCH ×3 (12:30→22:41)
[2016-12-18] MEDS: Baclofen 10 MG TABLET PO SCH ×2 (12:30→22:41)
[2016-12-18] MEDS: Gabapentin 300 MG CAPSULE PO SCH ×2 (12:30→22:45)
[2016-12-18] MEDS: Nicotine 21 MG PATCH.TD24 TD SCH (12:31)
[2016-12-18] MEDS: Pantoprazole 40 MG VIAL IVP SCH (12:32)
[2016-12-18] MEDS: ALPRAZolam 1 MG TABLET PO PRN (12:37)
--- NOTE | 2016-12-18 12:53 | Event Note ---
Date of Encounter: 12/18/16 Time of Encounter: 08:45 Patient seen and examined. On examination, patient sitting upright in bed. Patient alert and oriented 3 and currently denies pain. He states he is feeling much better than he did yesterday. Patient with right-sided facial drooping that is chronic for him. 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 No focal neurological weakness is present on examination. Head CT negative. Chest x-ray negative. Urinalysis negative. Tox screen only positive for benzodiazepine- he is on Xanax at home. Brain MRI negative for acute processes. Carotid and echo still pending. Yudy will have any needs regarding physical or occupational therapy. Neurology on board. He is not on any antihypertensive medications at home. Initial blood pressure is markedly elevated at 198/114 with repeat at 199/106. He was allowed for permissive hypertension, but now that acute CVA ruled out, he will be started on Amlodipine and monitored overnight for optimal BP control. Echo and Carotid still pending. ITS Impressions Head CT 12/17/16 18:37 IMPRESSION: No acute intracranial abnormality. Diffuse atrophic changes with findings suggesting chronic microvascular ischemia Findings were discussed with Patrice Rubin at 7:01 pm on 12/17/2016. D/ / Antoine Spaulding MD / Antoine Spaulding MD Interpreting Provider: Antoine Spaulding MD Chest X-Ray 12/17/16 19:38 IMPRESSION: No acute cardiopulmonary abnormality. D/ / Kody Mason MD / Kody Mason MD Interpreting Provider: Kody Mason MD Brain MRI 12/18/16 07:00 IMPRESSION: 1. No acute intracranial abnormality. 2. Mild generalized volume loss and mild chronic microvascular ischemic disease are similar to prior. D/ / 12/18/2016 11:53:23 Mecca Cooper MD / luisa Interpreting Provider: Mecca Cooper MD
[2016-12-18] MEDS ORDERED: Indomethacin 25 MG CAPSULE PO PRN (12:54)
[2016-12-18] MEDS: BuPROPion XL (24 HR) 150 MG TABLET PO SCH (14:19)
[2016-12-18] MEDS: amLODIPine 5 MG TABLET PO SCH (16:47)
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
[2016-12-18] MEDS: Thiamine (B-1) 100 MG TABLET PO SCH (17:42)
[2016-12-18] MEDS: Vitamin B Complex/Vit C/Vit E 1 EACH TABLET PO SCH (17:42)
[2016-12-18] MEDS: Folic Acid 1 MG TABLET PO SCH (17:42)
--- NOTE | 2016-12-18 19:52 | Electrocardiograph Report ---
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
[2016-12-18] MEDS ORDERED: Gabapentin 400 MG CAPSULE PO SCH (21:00)
[2016-12-18] MEDS: hydrOXYzine pamoate 25 MG CAPSULE PO PRN (22:42)
[2016-12-19] MEDS: *HR* Enoxaparin 40 MG/0.4 ML SYRINGE SQ SCH (05:59)
[2016-12-19 07:00] VITALS: BP 112/68
--- NOTE | 2016-12-19 08:38 | ECHO - Doppler Report ---
Echocardiogram Name: Girish Velasquez Date of Study: 12/18/2016 Date: 1955 Ht: 68.0 in Medical Record#: [id number] Age: 60 Wt: 166.0 lb Gender: Male BSA: 1.89 Order #: [id number] Location: [facility] Room #: 3B24 Reading Physician: Martínez Henson DO, LYNN, ANIKA ROWLEY Supervising Producer: Jacqui Osborn RDCS Ordering Physician: Tito Canseco MD Primary Physician: [facility] Indications: Cerebrovascular Accident Impressions: LVEF 65%. Normal LV chamber size, wall thickness and function. Mild left ventricular diastolic dysfunction. Normal right ventricular structure and function. Suboptimal image quality, but no obvious evidence of a PFO with agitated saline contrast. No evidence of pulmonary hypertension. No significant valvular dysfunction. Left Ventricular Wall Motion: Rest Echo Findings All wall segments showed normal motion. Findings: Study Quality * Technically adequate exam. ECG Findings * Normal sinus rhythm. Left Ventricle * LVEF 65%. * Normal LV chamber size, wall thickness and function. * Mild left ventricular diastolic dysfunction. Right Ventricle * Normal right ventricular structure and function. Left Atrium * Mildly dilated left atrium. Right Atrium * Normal right atrial size. Interatrial Septum * Suboptimal image quality, but no obvious evidence of a PFO with agitated saline contrast. Aortic Valve * Aortic valve not well visualized. * No aortic regurgitation. * No aortic stenosis. Mitral Valve * Normal mitral valve structure and function. * No mitral regurgitation. * No mitral stenosis. Tricuspid Valve * Normal tricuspid valve structure and function. * Trace tricuspid regurgitation. * No evidence of pulmonary hypertension. Pulmonic Valve * Pulmonic valve not well visualized. Aorta * Normally sized aortic root. Pericardium * The pericardium appears normal. IVC * Normal IVC dimensions and inspiratory collapse. Pulmonary Artery * Pulmonary artery not well visualized. History Hypertension History of Smoking Years Packs 0.5 Family History of CAD Contrast: Agitated saline 20 ml. Measurements: BP: 156/ 80 2D Normal Values RVIDd: 1.68 cm <2.7 cm IVSd: .74 cm 0.6 - 1.0 cm LVIDd: 5.50 cm 3.7 - 5.6 cm LVPWd: .98 cm 0.6 - 1.1 cm LVIDs: 2.73 cm 1.5 - 3.6 cm AO: 2.70 cm < 4.0 cm LA: 3.30 cm 2.0 - 4.0cm %FS: 50.40 cm >25 % LA volume: 36 Mitral Valve Peak E:.63 m/sec Peak A:.94 m/sec E/A Ratio:0.7 Peak E' Lat Warren:9.2 cm/s Peak E' Med Warren:6.71 cm/s E/E' Lat Ratio:6.9 E/E' Med Ratio:9.4 Aortic Valve AI pressure Half-time: 781.00 msec Tricuspid Valve TV Regurg Peak Grad: 14.00mmHg TV Regurg Peak Warren: 1.85m/sec Updated by Martínez Henson DO, LYNN, AMRIK, ANIKA on 12/19/2016 8:33:27 AM electronically signed on 12/19/2016 8:33:43 AM with status of Final Wall Motion Barron: 1=Normal, 2=Hypokinesis, 3=Akinesis, 4=Dyskinesis, 5=Aneurysmal, 6=Hyperkinetic, X=Not Visualized (Blank)=Missing
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
[2016-12-19] MEDS: Aspirin 81 MG TAB.CHEW PO SCH (09:32)
[2016-12-19] MEDS: Baclofen 10 MG TABLET PO SCH (09:32)
[2016-12-19] MEDS: Gabapentin 300 MG CAPSULE PO SCH (09:32)
[2016-12-19] MEDS: Folic Acid 1 MG TABLET PO SCH (09:32)
[2016-12-19] MEDS: Nicotine 21 MG PATCH.TD24 TD SCH (09:32)
[2016-12-19] MEDS: amLODIPine 5 MG TABLET PO SCH (09:32)
[2016-12-19] MEDS: carBAMazepine 200 MG TABLET PO SCH (09:33)
[2016-12-19] MEDS: Pantoprazole 40 MG VIAL IVP SCH (09:33)
[2016-12-19] MEDS: CarBAMazepine XR (12 hr) 100 MG TAB PO SCH (09:33)
[2016-12-19] MEDS: Vitamin B Complex/Vit C/Vit E 1 EACH TABLET PO SCH (09:33)
[2016-12-19] MEDS: BuPROPion XL (24 HR) 150 MG TABLET PO SCH (09:34)
[2016-12-19] MEDS: Thiamine (B-1) 100 MG TABLET PO SCH (09:34)
[2016-12-19] MEDS: hydrOXYzine pamoate 25 MG CAPSULE PO PRN (09:34)
[2016-12-19] MEDS: ALPRAZolam 1 MG TABLET PO PRN (09:34)
--- NOTE | 2016-12-19 18:36 | Carotid Imaging Report ---
Carotid Duplex Patient Name:Girish Velasquez Order Number:[id number] Procedure Date:12/18/2016 Date:1955ge:60 yrs Gender:Male Rt.BP:156 / 80 mmHgHeart Rate: Location:[facility] Room #: 24 Statistical Financial Analyst:Jacqui Osborn RDCS Referring MD:Tito Canseco MD wallpaper embosser helper:[facility] Keri MD:Rahul Leyva MD Primary Indications:CVA Risk Factors Yes/No Hypertension Yes Smoking Current Yes Impressions: The right carotid artery has minimal plaque throughout. The left carotid artery is normal throughout. Recommendations: Test completed on 12/18/2016 at 4:11:00 pm. Findings Carotid Duplex: Right: The right proximal common carotid artery has a PSV of 57 cm/s and a EDV of 11 cm/s. The right mid common carotid artery has a PSV of 78 cm/s and a EDV of 19 cm/s. The right distal common carotid artery has a PSV of 63 cm/s and a EDV of 17 cm/s. There is nonstenotic plaque in the right bifurcation with a PSV of 42 cm/s and a EDV of 16 cm/s. There is smooth homogeneous plaque. There is nonstenotic plaque in the right proximal internal carotid artery with a PSV of 52 cm/s and a EDV of 17 cm/s. There is smooth homogeneous plaque. The right mid internal carotid artery has a PSV of 76 cm/s and a EDV of 24 cm/s. The right distal internal carotid artery has a PSV of 75 cm/s and a EDV of 26 cm/s. The right eca has a PSV of 115 cm/s and a EDV of 10 cm/s. The right vertebral artery has a PSV of 42 cm/s and a EDV of 11 cm/s. There is antegrade spectral Doppler flow patterns. Left: The left proximal common carotid artery has a PSV of 98 cm/s and a EDV of 22 cm/s. The left mid common carotid artery has a PSV of 112 cm/s and a EDV of 19 cm/s. The left distal common carotid artery has a PSV of 96 cm/s and a EDV of 20 cm/s. The left bifurcation has a PSV of 53 cm/s and a EDV of 11 cm/s. The left proximal internal carotid artery has a PSV of 57 cm/s and a EDV of 14 cm/s. The left mid internal carotid artery has a PSV of 80 cm/s and a EDV of 22 cm/s. The left distal internal carotid artery has a PSV of 67 cm/s and a EDV of 14 cm/s. The left eca has a PSV of 98 cm/s and a EDV of 12 cm/s. The left vertebral artery has a PSV of 35 cm/s and a EDV of 10 cm/s. There is antegrade spectral Doppler flow patterns. Prior Study: No prior study available for comparison. Carotid Results Right PSV EDV Assessment Proximal CCA 57 11 Mid CCA 78 19 Distal CCA 63 17 Bifurcation 42 16 Non Stenotic Plaque Proximal ICA 52 17 Non Stenotic Plaque Mid ICA 76 24 Distal ICA 75 26 ECA 115 10 Vertebral Artery 42 11 Antegrade Flow Left PSV EDV Assessment Proximal CCA 98 22 Mid CCA 112 19 Distal CCA 96 20 Bifurcation 53 11 Proximal ICA 57 14 Mid ICA 80 22 Distal ICA 67 14 ECA 98 12 Vertebral Artery 35 10 Antegrade Flow Ratio's Right ICA/CCA Ratio: 0.97 ICA/CCA Values: 76/78 Left ICA/CCA Ratio: 0.71 ICA/CCA Values: 80/112 Updated by Rahul Leyva MD on 12/19/2016 6:31:32 PM electronically signed on 12/19/2016 6:31:47 PM with status of Final
== END 2016-12-19 11:30 | disposition home or self-care (01) | DRG 305 ==
LOC: EMEROO 18:23 → 3BNU 23:18
PROVIDERS: ADMIT Internal Medicine; ATTEND Nurse Practitioner Family